=== PATIENT | male | born 1975 | race Caucasian/White ===

== ENCOUNTER 2016-08-21 11:02 | Emergency (ER) | payer SELFPAY ==
[~2016-08-21] VITALS: Ht 167.6 cm; Wt 92.5 kg
[2016-08-21 11:07] VITALS: Ht 167.6 cm; Wt 92.5 kg
[2016-08-21] MEDS ORDERED: HYDR25SU23 PR (11:30)
[2016-08-21] MEDS ORDERED: DOCU-144 PO (11:30)
--- NOTE | 2016-08-21 11:34 | ERD ---
ER Documentation Chief Complaint Date/Time DATE: 08/21/16 TIME: 11:31 Chief Complaint Complains of rectal pain Hx of Hemrrhoids HPI Patient is a 40-year-old otherwise healthy male who presents with rectal pain. He has a history of hemorrhoids and he believes this is a flareup of hemorrhoids. This particular flareup has been bothering her for 2 days. He has pain with bowel movement but is having normal bowel movements. He denies any rectal bleeding. He has an appointment with primary care doctor tomorrow # 1 to get something to help ease the pain. Denies any fever, nausea, vomiting. ROS All systems reviewed and are negative except as per history of present illness. Medications Home Meds Active Scripts Docusate Sodium* (Colace*) 100 Mg Capsule, 100 MG PO TID, #30 CAP Prov:NOEMI GARCIA PA-C 08/21/16 Hydrocortisone Acetate (Anusol-Hc) 25 Mg Supp.rect, 1 SUPP TX BID, #12 SUPP.RECT Prov:NOEMI GARCIA PA-C 08/21/16 Allergies Allergies: Coded Allergies: No Known Allergy (Unverified , 08/21/16) PMhx/Soc Medical and Surgical Hx: pt denies Medical Hx, pt denies Surgical Hx Hx Alcohol Use: No Hx Substance Use: No Hx Tobacco Use: No Smoking Status: Never smoker FmHx Family History: No diabetes Physical Exam Vitals Vital Signs Date Time Temp Pulse Resp B/P Pulse Ox O2 Delivery O2 Flow Rate FiO2 08/21/16 11:07 98.6 101 20 123/79 98 Physical Exam General: well developed, well nourished, alert, nontoxic, no distress Head: normocephalic, atraumatic Eyes: PERRL, normal conjunctiva Neck: Supple, nontender, no lymphadenopathy, no midline tenderness Respiratory: Clear to auscaultation bilaterally, speaks in full sentences, no use of accesory muscles or labored breathing, no rales, ronchi, or wheezing Cardiovascular: RRR, No murmurs GI: soft, non tender, non distended, negative murphys sign, negative mcburneys point tenderness, no cva tenderness bilaterally, no rebound or guarding rectal: Patient has multiple nonthrombosed hemorrhoids, no active bleeding Procedures/MDM Patient has rectal pain secondary to hemorrhoids which were visualized on physical exam. He has appointment with primary care tomorrow which I recommended he keep. Given prescription for stool softeners as well as Anusol suppositories. Recommended this patient follow up with her primary care doctor within 48 hours or return to the emergency room for any worsening of symptoms. However this time I do believe there is suitable for outpatient management. I answered all their questions and they agreed with the plan and were discharged home. Departure Diagnosis: Primary Impression: External hemorrhoid Condition: Stable Patient Instructions: Hemorrhoids Additional Instructions: Call your primary care doctor TOMORROW for an appointment during the next 1-2 days.See the doctor sooner or return here if your condition worsens before your appointment time. NOEMI GARCIA PA-C Aug 21, 2016 11:34
== END 2016-08-21 11:39 | disposition home or self-care (01) ==
LOC: FTE 11:02
DX: K64.4 Residual hemorrhoidal skin tags (principal)
CPT/HCPCS: 99283